=== PATIENT | female | born 1955 | race Caucasian/White ===

== ENCOUNTER 2019-11-01 15:00 | Emergency (ER) | payer OTHER, MEDICAID ==
[~2019-11-01] VITALS: Ht 152.4 cm; Wt 68.0 kg
[2019-11-01 15:00] VITALS: BP_SYST 153
--- NOTE | 2019-11-01 15:00 | NUR ---
Patient to ER bed 08 to gown for evaluation. Side rails up.
--- NOTE | 2019-11-01 15:12 | NUR ---
Patient is awake, alert, and oriented x4. Patient reports that she had a fall at 1315 today, called 911, was cleared and continued on to physical therapy. Patient that started having muscle spasms and is unable to walk. Patient refused to answer pain scale assessment, screaming "I can't walk!"
--- NOTE | 2019-11-01 15:30 | NUR ---
Dr Kevin at bedside examining patient
--- NOTE | 2019-11-01 16:17 | NUR ---
Pt refusing blood at this time, pt states there is no need for blood.
[2019-11-01] MEDS: NACL 0.9% 1,000 ML IV ONE (16:20)
--- NOTE | 2019-11-01 16:21 | NUR ---
Pt refusing EKG at this time, notified, per pharmacy Valium medication is not available.
[2019-11-01] MEDS: DIAZEPAM 10 MG/2 ML DISP.SYRIN IVP ONE (16:27)
[2019-11-01] MEDS: LORazepam 2 MG/ML VIAL IVP ONE (16:57)
--- NOTE | 2019-11-01 17:20 | NUR ---
Pt refusing X-ray at this time, notified
[2019-11-01] MEDS: KETOROLAC TROMETHAMINE 30 MG VIAL IVP ONE (17:42)
[2019-11-01 18:18] VITALS: BP_SYST 146
--- NOTE | 2019-11-01 18:18 | NUR ---
Patient given written and verbal discharge instructions and verbalizes understanding. ER MD discussed with patient the results and treatment provided. Patient in stable condition. ID arm band removed. No Rx given. Patient educated on pain management and to follow up with PMD. Pain Scale 2/10 Opportunity for questions provided and answered. Medication side effect fact sheet provided.
== END 2019-11-01 18:18 | disposition home or self-care (01) ==
LOC: SED 15:00
DX: M62.838 Other muscle spasm (principal); E11.9 Type 2 diabetes mellitus without complications; I10 Essential (primary) hypertension; W01.0XXA Fall on same level from slipping, tripping and stumbling without subsequent striking against object, initial encounter; Y93.89 Activity, other specified; Y92.89 Other specified places as the place of occurrence of the external cause; Y99.8 Other external cause status
CPT/HCPCS: 96374; 96375; 99283; J1885; J2060; J7030

== ENCOUNTER 2022-03-25 14:30 | Emergency (ER) | payer OTHER, MEDICAID ==
[~2022-03-25] VITALS: Ht 152.4 cm; Wt 53.5 kg
[2022-03-25 14:45] VITALS: BP_SYST 136
--- NOTE | 2022-03-25 14:45 | NUR ---
Pt to bed 7 for evaluation. Report given to JOHAN Coley.
--- NOTE | 2022-03-25 15:05 | NUR ---
Dr. Peguero at bedside to assess.
[2022-03-25] MEDS ORDERED: ASPIRIN 81 MG TAB.CHEW PO ONE ×2 (15:15→16:30)
[2022-03-25 15:31] LABS: BASOPHILS # (AUTO) 0.1 K/uL (0.0-0.2); BASOPHILS % (AUTO) 1.2 % (0.0-2.0); EOSINOPHILS # (AUTO) 0.4 K/uL (0.0-0.4); EOSINOPHILS % (AUTO) 3.3 % (0.0-4.0); HEMATOCRIT 34.5 % (36-48); HEMOGLOBIN 11.7 g/dL (12.0-16.0); LYMPHOCYTES # (AUTO) 2.5 K/uL (1.0-5.5); LYMPHOCYTES % (AUTO) 24.3 % (20.5-51.5); MEAN CORPUSCULAR HEMOGLOBIN 31 pg (27-31); MEAN CORPUSCULAR HGB CONC 34 % (32-36); MEAN CORPUSCULAR VOLUME 90 fL (79.0-98.0); MONOCYTES # (AUTO) 0.9 K/uL (0.0-1.0); MONOCYTES % (AUTO) 8.6 % (1.7-9.3); NEUTROPHILS # (AUTO) 6.6 K/uL (1.8-7.7); NEUTROPHILS % (AUTO) 62.6 % (40.0-70.0); PLATELET COUNT (AUTO) 274 K/uL (130-430); RED BLOOD CELL COUNT(AUTO) 3.84 MIL/uL (4.2-6.2); RED CELL DISTRIBUTION WIDTH 14.6 % (9.0-15.0); WHITE BLOOD COUNT (AUTO) 10.5 K/uL (4.8-10.8)
[2022-03-25 15:37] LABS: ANION GAP 6 (5-15); CHLORIDE 107 mmol/L (98-107); CREATININE 0.69 mg/dL (0.55-1.30); GLUCOSE 281 mg/dL (70-99); POTASSIUM 4.3 mmol/L (3.5-5.1); SODIUM SERUM 139 mmol/L (136-145); UREA NITROGEN, BLOOD 22 mg/dL (8-21)
[2022-03-25 15:46] LABS: ALANINE AMINOTRANSFERASE 62 U/L (12-78); ALBUMIN 2.6 g/dL (3.4-4.8); ASPARTATE AMINOTRANSFERASE 21 U/L (10-37); TOTAL BILIRUBIN 0.2 mg/dL (0.0-1.0)
[2022-03-25 16:01] LABS: GFR AFRICAN AMERICAN 110 mL/min (>90)
--- NOTE | 2022-03-25 16:45 | NUR ---
PT WANT TO TRANSFER TO [facility], VSS ,NSTEMI, AMBULATED TO [facility] WITH ASSISTANCE.
[2022-03-25 16:53] VITALS: BP_SYST 133
--- NOTE | 2022-03-25 17:31 | NUR ---
PT REFUSED ASPIRIN
--- NOTE | 2022-03-25 17:48 | NUR ---
ERMD AWARE OF TROP 64
--- NOTE | 2022-03-25 20:15 | NUR ---
Patient does not wish to proceed with medical care recommended by MD MONSON. Patient given information related to possible complications, up to and including , which could occur as a result of leaving hospital at this time. Patient verbalizes understanding of risks involved leaving against medical advice. Patient has signed AMA form.
== END 2022-03-25 20:15 | disposition left against medical advice (07) ==
LOC: SED 14:30
DX: I21.4 Non-ST elevation (NSTEMI) myocardial infarction (principal); R06.00 Dyspnea, unspecified; E11.9 Type 2 diabetes mellitus without complications; I10 Essential (primary) hypertension; Z88.1 Allergy status to other antibiotic agents; Z88.9 Allergy status to unspecified drugs, medicaments and biological substances; Z91.041 Radiographic dye allergy status
CPT/HCPCS: 36415; 71045; 80053; 83880; 84484; 85025; 93005; 99291; 99292

== ENCOUNTER 2023-02-09 14:22 | Inpatient (IN) | payer OTHER, MEDICAID ==
[~2023-02-09] VITALS: Ht 149.9 cm; Wt 44.9 kg
[2023-02-09 14:28] VITALS: BP_SYST 135
[2023-02-09] MEDS ORDERED: LORazepam 2 MG/ML VIAL IM ONE (14:45)
[2023-02-09 16:09] LABS: BASOPHILS # (AUTO) 0.1 K/uL (0.0-0.2); BASOPHILS % (AUTO) 0.8 % (0.0-2.0); EOSINOPHILS # (AUTO) 0.2 K/uL (0.0-0.4); EOSINOPHILS % (AUTO) 2.1 % (0.0-4.0); HEMATOCRIT 40.9 % (36-48); HEMOGLOBIN 13.9 g/dL (12.0-16.0); LYMPHOCYTES # (AUTO) 1.2 K/uL (1.0-5.5); LYMPHOCYTES % (AUTO) 11.4 % (20.5-51.5); MEAN CORPUSCULAR HEMOGLOBIN 31 pg (27-31); MEAN CORPUSCULAR HGB CONC 34 % (32-36); MEAN CORPUSCULAR VOLUME 90 fL (79.0-98.0); MONOCYTES # (AUTO) 0.8 K/uL (0.0-1.0); MONOCYTES % (AUTO) 7.5 % (1.7-9.3); NEUTROPHILS # (AUTO) 8.5 K/uL (1.8-7.7); NEUTROPHILS % (AUTO) 78.2 % (40.0-70.0); PLATELET COUNT (AUTO) 287 K/uL (130-430); RED BLOOD CELL COUNT(AUTO) 4.53 MIL/uL (4.2-6.2); RED CELL DISTRIBUTION WIDTH 15.2 % (9.0-15.0); WHITE BLOOD COUNT (AUTO) 10.9 K/uL (4.8-10.8)
[2023-02-09 16:26] LABS: ANION GAP 13 (5-15); CALCIUM 8.5 mg/dL (8.4-11.0); CHLORIDE 104 mmol/L (98-107); CREATININE 0.64 mg/dL (0.55-1.30); GFR AFRICAN AMERICAN 120 mL/min (>90); GLUCOSE 286 mg/dL (70-99); UREA NITROGEN, BLOOD 15 mg/dL (8-21)
[2023-02-09 16:45] LABS: ALANINE AMINOTRANSFERASE 36 U/L (12-78); ALBUMIN 3.3 g/dL (3.4-4.8); ASPARTATE AMINOTRANSFERASE 24 U/L (10-37); TOTAL BILIRUBIN 0.5 mg/dL (0.0-1.0)
[2023-02-09] MEDS ORDERED: MORPHINE 4 MG INJ. 4 MG/ML VIAL IVP ONE (16:45)
[2023-02-09 17:09] LABS: ACETONE, SERUM TRACE (NEGATIVE)
[2023-02-09] MEDS ORDERED: LORazepam 2 MG/ML VIAL IVP ONE (18:15)
[2023-02-09] MEDS ORDERED: POTASSIUM CHLORIDE 20 MEQ TAB.PRT.SR PO PRN (18:45)
[2023-02-09] MEDS ORDERED: MUPIROCIN 2% TOPICAL OINTMENT 22 GM NS PRN (18:45)
[2023-02-09] MEDS ORDERED: DEXTROSE 50% JECT 50 ML DISP.SYRIN IVP PRN (18:45)
[2023-02-09] MEDS ORDERED: ZOLPIDEM TARTRATE 5 MG TABLET PO PRN (18:45)
[2023-02-09] MEDS ORDERED: MORPHINE 2 MG/ML INJ. SYRINGE IVP PRN (18:45)
[2023-02-09] MEDS ORDERED: ONDANSETRON HCL 4 MG/2 ML VIAL IVP PRN (18:45)
[2023-02-09] MEDS ORDERED: MAGNESIUM SULFATE 50 ML IV PRN (18:45)
[2023-02-09] MEDS ORDERED: ACETAMINOPHEN 325 MG TABLET PO PRN ×2 (18:45→19:00)
[2023-02-09] MEDS ORDERED: DOCUSATE SODIUM 100 MG CAPSULE PO PRN (18:45)
[2023-02-09 18:58] LABS: BILIRUBIN,URINE NEGATIVE (NEGATIVE); BLOOD, URINE NEGATIVE (NEGATIVE); COLOR,URINE YELLOW (YELLOW); GLUCOSE,URINE 3+ (NEGATIVE); KETONES,URINE 1+ (NEGATIVE); LEUKOCYTE ESTERASE ,URINE NEGATIVE (NEGATIVE); NITRITE, URINE NEGATIVE (NEGATIVE); PH,URINE 5.5 (5.0-8.0); PROTEIN URINE NEGATIVE (NEGATIVE); UROBILINOGEN,URINE 0.2 (0.2-1.0)
[2023-02-09 19:07] LABS: CLARITY/URINE HAZY (CLEAR); RBC,URINE NONE SEEN /HPF (0-3); WBC,URINE 0-3 /HPF (0-3)
[2023-02-09 19:08] LABS: BACTERIA,URINE FEW /HPF (None Seen); MUCUS,URINE None Seen /LPF (None Seen); YEAST,URINE Many /HPF (None Seen)
[2023-02-09] MEDS: NACL 0.9% 1,000 ML IV SCH (19:34)
[2023-02-09] MEDS ORDERED: SEMA0.25 SUBCUT (20:49)
[2023-02-09] MEDS ORDERED: GLIP10TA21 PO (20:49)
[2023-02-09] MEDS ORDERED: NEU300 PO (20:49)
[2023-02-09] MEDS ORDERED: DAPA10TA PO (20:49)
[2023-02-09] MEDS ORDERED: CLOP75TA32 PO (20:49)
[2023-02-09] MEDS ORDERED: LEVO2.5S8 PO (20:49)
[2023-02-09] MEDS ORDERED: ROSU10TA2 PO (20:49)
[2023-02-09] MEDS ORDERED: SPIR25TA PO (20:49)
[2023-02-09] MEDS ORDERED: VENL150C53 PO (20:49)
[2023-02-09] MEDS ORDERED: DILT30TA35 PO (20:49)
[2023-02-09] MEDS ORDERED: INSULIN Lispro 100 UNITS/ML, 3 ML VIAL (humaLOG) ONE (21:03)
[2023-02-09] MEDS: INSULIN LISPRO SLIDING SCALE 100 UNITS/ML, 3 ML VIAL (humaLOG) SUBCUT PRN (21:03)
[2023-02-09 23:20] VITALS: BP_SYST 119
[2023-02-10 01:30] VITALS: BP_SYST 136
[2023-02-10] MEDS: DILTIAZEM HCL 60 MG TABLET PO SCH ×3 (02:17→20:46)
[2023-02-10] MEDS: GABAPENTIN 300 MG CAPSULE PO SCH ×2 (02:17→17:07)
[2023-02-10] MEDS: NACL 0.9% 1,000 ML IV SCH ×4 (05:09→23:41)
[2023-02-10] MEDS: INSULIN LISPRO SLIDING SCALE 100 UNITS/ML, 3 ML VIAL (humaLOG) SUBCUT PRN ×4 (05:39→21:02)
[2023-02-10 05:48] LABS: BASOPHILS # (AUTO) 0.1 K/uL (0.0-0.2); BASOPHILS % (AUTO) 0.6 % (0.0-2.0); EOSINOPHILS % (AUTO) 0.5 % (0.0-4.0); HEMATOCRIT 41.6 % (36-48); HEMOGLOBIN 13.9 g/dL (12.0-16.0); LYMPHOCYTES # (AUTO) 1.5 K/uL (1.0-5.5); LYMPHOCYTES % (AUTO) 14.9 % (20.5-51.5); MEAN CORPUSCULAR HEMOGLOBIN 30 pg (27-31); MEAN CORPUSCULAR HGB CONC 34 % (32-36); MEAN CORPUSCULAR VOLUME 91 fL (79.0-98.0); MONOCYTES # (AUTO) 0.9 K/uL (0.0-1.0); MONOCYTES % (AUTO) 8.9 % (1.7-9.3); NEUTROPHILS # (AUTO) 7.4 K/uL (1.8-7.7); NEUTROPHILS % (AUTO) 75.1 % (40.0-70.0); PLATELET COUNT (AUTO) 308 K/uL (130-430); RED BLOOD CELL COUNT(AUTO) 4.57 MIL/uL (4.2-6.2); WHITE BLOOD COUNT (AUTO) 9.8 K/uL (4.8-10.8)
[2023-02-10 06:21] LABS: CALCIUM 8.6 mg/dL (8.4-11.0); CREATININE 0.51 mg/dL (0.55-1.30)
[2023-02-10] MEDS ORDERED: NON-FORMULARY MEDICATION (Semaglutide (Ozempic) 0.5 MG) SUBCUT SCH (07:00)
[2023-02-10] MEDS ORDERED: GLIP10TA11 PO (07:34)
[2023-02-10 08:00] VITALS: BP_SYST 128
[2023-02-10] MEDS ORDERED: NON-FORMULARY MEDICATION (Dapagliflozin Propanediol (Farxiga) 1 TAB) PO SCH (09:00)
[2023-02-10] MEDS: CLOPIDOGREL BISULFATE 75 MG TABLET PO SCH (09:05)
[2023-02-10] MEDS: ASPIRIN 81 MG TABLET(ECOTRIN) PO SCH (09:06)
[2023-02-10] MEDS: SPIRONOLACTONE 25 MG TABLET (ALDACTONE) PO SCH (09:06)
[2023-02-10] MEDS: Effexor XR 37.5 MG PO SCH (09:07)
[2023-02-10] MEDS: FLUCONAZOLE 100 mg/ NS 50 ML IV SCH (09:08)
[2023-02-10] MEDS: LORazepam 2 MG/ML VIAL IVP PRN ×2 (09:20→22:38)
[2023-02-10] MEDS: MORPHINE 2 MG/ML INJ. SYRINGE IVP PRN ×2 (11:52→20:47)
[2023-02-10 16:23] VITALS: BP_SYST 123
[2023-02-10 20:00] VITALS: BP_SYST 123
[2023-02-10] MEDS ORDERED: ROSUVASTATIN CALCIUM 5 MG/TAB (CRESTOR) PO SCH (21:00)
[2023-02-10] MEDS ORDERED: LEVOCETIRIZINE DIHYDROCHLORIDE PO SCH (21:00)
[2023-02-10] MEDS ORDERED: ATORVASTATIN 20 MG TABLET PO SCH (21:00)
[2023-02-11 00:10] VITALS: BP_SYST 117
[2023-02-11 05:58] LABS: BASOPHILS # (AUTO) 0.1 K/uL (0.0-0.2); BASOPHILS % (AUTO) 0.7 % (0.0-2.0); EOSINOPHILS # (AUTO) 0.4 K/uL (0.0-0.4); EOSINOPHILS % (AUTO) 5.2 % (0.0-4.0); HEMATOCRIT 36.9 % (36-48); HEMOGLOBIN 12.2 g/dL (12.0-16.0); LYMPHOCYTES # (AUTO) 2.3 K/uL (1.0-5.5); LYMPHOCYTES % (AUTO) 26.5 % (20.5-51.5); MEAN CORPUSCULAR HEMOGLOBIN 30 pg (27-31); MEAN CORPUSCULAR HGB CONC 33 % (32-36); MEAN CORPUSCULAR VOLUME 92 fL (79.0-98.0); MONOCYTES # (AUTO) 0.8 K/uL (0.0-1.0); MONOCYTES % (AUTO) 9.2 % (1.7-9.3); NEUTROPHILS % (AUTO) 58.4 % (40.0-70.0); PLATELET COUNT (AUTO) 243 K/uL (130-430); RED BLOOD CELL COUNT(AUTO) 4.03 MIL/uL (4.2-6.2); RED CELL DISTRIBUTION WIDTH 15.1 % (9.0-15.0); WHITE BLOOD COUNT (AUTO) 8.5 K/uL (4.8-10.8)
[2023-02-11 06:09] LABS: CREATININE 0.37 mg/dL (0.55-1.30)
[2023-02-11] MEDS: INSULIN LISPRO SLIDING SCALE 100 UNITS/ML, 3 ML VIAL (humaLOG) SUBCUT PRN (06:54)
[2023-02-11 08:00] VITALS: BP_SYST 130
[2023-02-11] MEDS: ASPIRIN 81 MG TABLET(ECOTRIN) PO SCH (08:47)
[2023-02-11] MEDS: DILTIAZEM HCL 60 MG TABLET PO SCH (08:48)
[2023-02-11] MEDS: CLOPIDOGREL BISULFATE 75 MG TABLET PO SCH (08:48)
[2023-02-11] MEDS: SPIRONOLACTONE 25 MG TABLET (ALDACTONE) PO SCH (08:49)
[2023-02-11] MEDS: Effexor XR 37.5 MG PO SCH (08:49)
[2023-02-11] MEDS ORDERED: DIF100 PO (09:54)
[2023-02-11] MEDS ORDERED: LEVO-62 PO (09:54)
[2023-02-11] MEDS: MORPHINE 2 MG/ML INJ. SYRINGE IVP PRN ×2 (10:19→14:02)
[2023-02-11] MEDS: FLUCONAZOLE 100 mg/ NS 50 ML IV SCH (10:20)
[2023-02-11 11:14] VITALS: BP_SYST 131
[2023-02-11 12:02] VITALS: BP_SYST 107
[2023-02-11] MEDS ORDERED: HYDR-3917 PO (14:02)
[2023-02-11 16:00] VITALS: BP_SYST 107; BP_SYST 128
== END 2023-02-11 16:25 | disposition home or self-care (01) | DRG 91 ==
LOC: SED 14:22 → STU 18:37
PROVIDERS: ADMIT General Practice; ATTEND General Practice
DX: G80.9 Cerebral palsy, unspecified (principal); I21.A1 Myocardial infarction type 2; E44.1 Mild protein-calorie malnutrition; N39.0 Urinary tract infection, site not specified; E11.65 Type 2 diabetes mellitus with hyperglycemia; I10 Essential (primary) hypertension; Z96.669 Presence of unspecified artificial ankle joint; Z20.822 Contact with and (suspected) exposure to COVID-19; I48.91 Unspecified atrial fibrillation; Z88.8 Allergy status to other drugs, medicaments and biological substances; Z91.041 Radiographic dye allergy status; Z79.899 Other long term (current) drug therapy; Z79.02 Long term (current) use of antithrombotics/antiplatelets; Z79.82 Long term (current) use of aspirin; Z90.49 Acquired absence of other specified parts of digestive tract; Z68.20 Body mass index [BMI] 20.0-20.9, adult
CPT/HCPCS: 36415; 70450-TC; 76376; 80048; 80053; 81000; 82009; 82550; 82962; 83037; 83605; 83735; 84484; 85025; 93005; 97110-GP; 97116-GP; 97530-GP; 99285; G0378; J1450; J1956; J2060; J2270